=== PATIENT | male | born 1985 | race Caucasian/White ===

== ENCOUNTER 2022-07-23 03:55 | Emergency (ER) | payer SELFPAY ==
[2022-07-23] MEDS ORDERED: Ibuprofen 200 MG TAB ONE (04:13)
[2022-07-23] MEDS ORDERED: Cyclobenzaprine 10 MG TAB ONE (04:43)
[2022-07-23] MEDS ORDERED: traMADol HCl 50 MG TAB ONE (04:44)
== END 2022-07-23 04:57 | disposition home or self-care (01) ==
LOC: BURERS 03:55
DX: M43.6 Torticollis (principal); F17.210 Nicotine dependence, cigarettes, uncomplicated